=== PATIENT | female | born 1985 | race Caucasian/White ===

== ENCOUNTER 2016-12-24 15:45 | Inpatient (IN) | payer BC ==
[2016-12-24] MEDS ORDERED: OBEPIDURAL* 250 ML ONE (21:12)
[2016-12-24] MEDS ORDERED: fentaNYL* 50 MCG/ML 2 ML VIAL (100 MCG VIAL) ONE (21:12)
[2016-12-24 21:23] LABS: Hematocrit 33 % (35-47); Hemoglobin 10.8 g/dl (12.0-16.0); Mean Corpuscular HGB Conc 33 g/dl (31-36); Mean Corpuscular Hemoglobin 27 pg (27-31); Mean Corpuscular Volume 81 fL (80-97); Mean Platelet Volume 8 um3 (7.4-10.4); Red Blood Count 4.03 10^6/ul (4.0-5.4); Red Cell Distribution Width 13 % (10.5-15)
[2016-12-24] MEDS ORDERED: Sodium Citrate/Citric Acid* 15 ML UDC PO PRN (21:50)
[2016-12-24] MEDS ORDERED: Phenylephrine IV* 40 MCG/ML 10 ML SYRINGE IV PUSH PRN ×2 (21:50)
[2016-12-24] MEDS ORDERED: Famotidine TAB* 20 MG PO PRN (21:50)
[2016-12-24] MEDS ORDERED: OBEPIDURAL* 250 ML EPIDURAL SCH (22:00)
[2016-12-25] MEDS ORDERED: Oxytocin in LR* 20 UNITS/1,000 ML BAG IVPB ONE (03:53)
[2016-12-25] MEDS ORDERED: Witch Hazel PAD* JAR TOPICAL PRN (04:54)
[2016-12-25] MEDS ORDERED: Glycerin ADULT SUPP PR PRN (04:54)
[2016-12-25] MEDS ORDERED: Dibucaine 1% 28.35 GM TUBE PR PRN (04:54)
[2016-12-25] MEDS ORDERED: oxyCODONE/Acetamin 5/325 MG* TAB PO PRN (04:54)
[2016-12-25] MEDS ORDERED: Acetaminophen TAB* 325 MG PO PRN (04:54)
[2016-12-25] MEDS ORDERED: Oxytocin in LR* 20 UNITS/1,000 ML BAG IVPB SCH (05:00)
[2016-12-25] MEDS: Ibuprofen TAB* 600 MG PO PRN ×3 (06:12→19:52)
[2016-12-25] MEDS: Docusate CAP* 100 MG PO SCH ×3 (08:59→19:53)
[2016-12-26 07:06] LABS: Hematocrit 27 % (35-47); Hemoglobin 8.7 g/dl (12.0-16.0); Mean Corpuscular HGB Conc 33 g/dl (31-36); Mean Corpuscular Hemoglobin 27 pg (27-31); Mean Corpuscular Volume 82 fL (80-97); Mean Platelet Volume 8 um3 (7.4-10.4); Red Blood Count 3.26 10^6/ul (4.0-5.4); Red Cell Distribution Width 13 % (10.5-15); White Blood Count 11.3 10^3/ul (3.5-10.8)
[2016-12-26 08:00] VITALS: BP 124/92
[2016-12-26] MEDS: Ibuprofen TAB* 600 MG PO PRN (08:05)
[2016-12-26] MEDS ORDERED: Ferrous Gluconate TAB* 324 MG TAB PO SCH (09:00)
[2016-12-26] MEDS: Docusate CAP* 100 MG PO SCH (09:27)
== END 2016-12-26 12:45 | disposition home or self-care (01) | DRG 560 ==
LOC: MCHOBOUT 15:45 → MCHOB 16:20
PROVIDERS: ADMIT Midwife; ATTEND Midwife
PROC: 10E0XZZ Delivery of Products of Conception, External Approach (ICD-10-PCS; principal; 2016-12-25)
PROC: 0KQM0ZZ Repair Perineum Muscle, Open Approach (ICD-10-PCS; 2016-12-25)
DX: O48.0 Post-term pregnancy (principal); D64.9 Anemia, unspecified; O70.1 Second degree perineal laceration during delivery; O90.81 Anemia of the puerperium; Z3A.40 40 weeks gestation of pregnancy; Z37.0 Single live birth
CPT/HCPCS: 36415; 85025; 85027; 86850; 86900; 86901; A9270-GY; J3010